=== PATIENT | male | born 1985 | race Two or more races ===

== ENCOUNTER 2021-03-31 21:35 | Inpatient (IN) | payer BC ==
[~2021-03-31] VITALS: Ht 182.9 cm; Wt 98.0 kg
--- NOTE | 2021-03-31 21:40 | NUR ---
pt BIB ambulance as a [facility] as a trasnfer for n/o full heart block per report, pt was recently in [place] and had some exposure to tics. when he came home, he had a n/o rash and went to where he was told that he was having a potential allergic reaction. pt reports no insect bites that he is aware of. pt as placed on PO steroids. pt noted that he started having dizziness with exertion and went to [facility] where he was found to be in heart block pt has been given 3mg atropine [employer] without improvement pt has no other hx. denies CP dizziness or SOB at this time. resting on gurney in position of comfort. pt is on monitor with cardiac pads. manual pulse is 19 no family at bedside. Dr Parra has been to bedside for eval
--- NOTE | 2021-03-31 21:50 | NUR ---
EKG has been to bedside. lab has been to bedside to draw pt resting in position of comfort. awaiting thermal molder to bedside
--- NOTE | 2021-03-31 21:51 | NUR ---
interventional cards paged
[2021-03-31 21:53] LABS: BASOPHILS % (AUTO) 1 % (0-1); EOSINOPHILS % (AUTO) 0 % (1-7); LYMPHOCYTES % (AUTO) 17 % (22-44); MEAN CORPUSCULAR HEMOGLOBIN 33.4 pg (27.5-34.5); MEAN PLATELET VOLUME 10.7 fL (7.4-10.4); MONOCYTES % (AUTO) 9 % (2-9); NEUTROPHILS % (AUTO) 73 % (42-75); PLATELET COUNT 226 x10^3/uL (130-400); RED BLOOD COUNT 3.94 x10^6/uL (4.38-5.82); RED CELL DISTRIBUTION WIDTH 13.9 % (9.4-14.8)
[2021-03-31 21:57] LABS: ALANINE AMINOTRANSFERASE 135 U/L (12-78); ALBUMIN 2.8 g/dL (3.4-5.0); ANION GAP 7 mmol/L (5-15); CHLORIDE 108 mmol/L (98-107); CREATININE 1.15 mg/dL (0.7-1.3)
[2021-03-31 22:07] LABS: ALKALINE PHOSPHATASE 150 U/L (45-117); BILIRUBIN,TOTAL 0.4 mg/dL (0.2-1.0); T4 (THYROXINE) 6.1 mcg/dL (4.5-12.1); TOTAL PROTEIN 7.8 g/dL (6.4-8.2); TROPONIN I < 0.015 ng/mL (0.000-0.045)
--- NOTE | 2021-03-31 22:18 | NUR ---
CXR has been to bedside COVID swab has been collected and sent pt to go to fence lab[facility] for pacemaker placement. tri color form initiated
[2021-03-31 22:24] LABS: INTERNATIONAL NORMALIZED RATIO 1.1 (0.93-1.1); PROTHROMBIN TIME 11.7 Seconds (9.6-11.5)
--- NOTE | 2021-03-31 22:24 | NUR ---
hospitalist at bedside for eval
[2021-03-31] MEDS ORDERED: SODIUM CHLORIDE FLUSH 10ML SYR IVF ONE (22:30)
[2021-03-31] MEDS ORDERED: SODIUM CHLORIDE 0.9% 1,000ML IVBOLUS ONE (22:30)
[2021-03-31] MEDS ORDERED: PLEASE ENTER ALLERGIES MC SCH (22:30)
--- NOTE | 2021-03-31 22:35 | NUR ---
pt to [facility] via [facility] monitoring [facility]. NS infusing
[2021-03-31] MEDS ORDERED: LIDOCAINE 2%, 20ML ONE (22:36)
[2021-03-31] MEDS ORDERED: FENTANYL PF 100 MCG/2ML ONE (22:36)
[2021-03-31] MEDS ORDERED: MIDAZOLAM 1 MG/ML, 2ML ONE (22:36)
[2021-03-31] MEDS ORDERED: OXYcodone/APAP 5/325MG TABLET PO PRN (23:30)
[2021-03-31 23:31] VITALS: BP 126/81
[2021-04-01] MEDS ORDERED: DIPHENHYDRAMINE 50 MG/ML, 1ML IVPush PRN (00:30)
[2021-04-01] MEDS: CEFTRIAXONE 2 GM in DEXTROSE 5% 50 ML IVPB SCH (08:29)
[2021-04-01] MEDS ORDERED: IBUPROFEN 600 MG TABLET PO PRN (09:00)
[2021-04-01] MEDS: ACETAMINOPHEN 325 MG TABLET PO PRN ×2 (10:35→22:40)
[2021-04-02] MEDS ORDERED: MELATONIN 5 MG TABLET ONE (00:19)
[2021-04-02] MEDS: MELATONIN 5 MG TABLET PO PRN ×2 (00:20→22:29)
[2021-04-02 03:57] LABS: ALBUMIN 2.6 g/dL (3.4-5.0); ANION GAP 5 mmol/L (5-15); CHLORIDE 106 mmol/L (98-107)
[2021-04-02 04:01] LABS: ALANINE AMINOTRANSFERASE 102 U/L (12-78); ALKALINE PHOSPHATASE 126 U/L (45-117); BILIRUBIN,TOTAL 0.4 mg/dL (0.2-1.0); CREATININE 0.82 mg/dL (0.7-1.3); TOTAL PROTEIN 7.5 g/dL (6.4-8.2)
[2021-04-02] MEDS: CEFTRIAXONE 2 GM in DEXTROSE 5% 50 ML IVPB SCH (07:28)
[2021-04-02] MEDS: ACETAMINOPHEN 325 MG TABLET PO PRN (22:29)
[2021-04-03 05:35] LABS: ALANINE AMINOTRANSFERASE 73 U/L (12-78); ALBUMIN 2.5 g/dL (3.4-5.0); ANION GAP 3 mmol/L (5-15); CALCIUM 8.9 mg/dL (8.5-10.1); CHLORIDE 108 mmol/L (98-107); CREATININE 0.88 mg/dL (0.7-1.3)
[2021-04-03 05:38] LABS: ALKALINE PHOSPHATASE 119 U/L (45-117); BILIRUBIN,TOTAL 0.3 mg/dL (0.2-1.0); TOTAL PROTEIN 7.3 g/dL (6.4-8.2)
[2021-04-03] MEDS: CEFTRIAXONE 2 GM in DEXTROSE 5% 50 ML IVPB SCH (07:38)
[2021-04-03] MEDS: ACETAMINOPHEN 325 MG TABLET PO PRN ×2 (16:10→22:17)
[2021-04-03] MEDS: MELATONIN 5 MG TABLET PO PRN (22:17)
[2021-04-04] MEDS: CEFTRIAXONE 2 GM in DEXTROSE 5% 50 ML IVPB SCH (07:10)
[2021-04-04] MEDS: ACETAMINOPHEN 325 MG TABLET PO PRN ×2 (15:35→21:39)
[2021-04-04] MEDS: MELATONIN 5 MG TABLET PO PRN (21:39)
[2021-04-05] MEDS: CEFTRIAXONE 2 GM in DEXTROSE 5% 50 ML IVPB SCH (07:51)
[2021-04-05] MEDS: ACETAMINOPHEN 325 MG TABLET PO PRN (22:22)
[2021-04-05] MEDS: MELATONIN 5 MG TABLET PO PRN (22:23)
[2021-04-06] MEDS ORDERED: VANCOMYCIN PMX 1GM/200ML 200 ML IVPB SCH (08:00)
[2021-04-06] MEDS: SODIUM CHLORIDE 0.9% 1,000 ML IV SCH ×2 (08:00→16:00)
[2021-04-06] MEDS: CEFTRIAXONE 2 GM in DEXTROSE 5% 50 ML IVPB SCH (08:01)
[2021-04-06] MEDS ORDERED: LIDOCAINE 2%, 20ML ONE (08:05)
[2021-04-06] MEDS ORDERED: CEFAZOLIN 1,000 MG ONE (08:05)
[2021-04-06] MEDS ORDERED: CEFAZOLIN PMX 1GM/50ML 0 ML ONE (08:05)
[2021-04-06] MEDS ORDERED: MIDAZOLAM 1 MG/ML, 5ML ONE ×2 (08:05→08:57)
[2021-04-06] MEDS ORDERED: FENTANYL PF 100 MCG/2ML ONE ×2 (08:05→08:56)
[2021-04-06] MEDS ORDERED: VANCOMYCIN 1,000 MG ONE (08:27)
[2021-04-06] MEDS ORDERED: HOLD MEDICATION MC PRN (11:00)
[2021-04-06 11:15] VITALS: BP 136/84
[2021-04-06 14:55] VITALS: BP 109/63
[2021-04-06] MEDS: SODIUM CHLORIDE FLUSH 10ML SYR IVF SCH (21:13)
[2021-04-06] MEDS: ACETAMINOPHEN 325 MG TABLET PO PRN (21:13)
[2021-04-06] MEDS: MELATONIN 5 MG TABLET PO PRN (21:13)
[2021-04-07 00:50] VITALS: BP 112/74
[2021-04-07 05:17] LABS: BASOPHILS % (AUTO) 1 % (0-1); EOSINOPHILS % (AUTO) 4 % (1-7); LYMPHOCYTES % (AUTO) 15 % (22-44); MEAN PLATELET VOLUME 9.9 fL (7.4-10.4); MONOCYTES % (AUTO) 10 % (2-9); NEUTROPHILS % (AUTO) 70 % (42-75); PLATELET COUNT 181 x10^3/uL (130-400); RED BLOOD COUNT 4.44 x10^6/uL (4.38-5.82); RED CELL DISTRIBUTION WIDTH 13.8 % (9.4-14.8)
[2021-04-07 05:27] LABS: ANION GAP 5 mmol/L (5-15); CALCIUM 9.4 mg/dL (8.5-10.1); CHLORIDE 103 mmol/L (98-107); CREATININE 0.83 mg/dL (0.7-1.3)
[2021-04-07 07:10] VITALS: BP 129/83
[2021-04-07] MEDS: CEFTRIAXONE 2 GM in DEXTROSE 5% 50 ML IVPB SCH (08:02)
[2021-04-07] MEDS: SODIUM CHLORIDE FLUSH 10ML SYR IVF SCH (09:57)
[2021-04-07] MEDS ORDERED: DOXY100T PO (12:21)
== END 2021-04-07 14:47 | disposition home or self-care (01) | DRG 243 ==
LOC: ED 22:05 → EDIP 22:14 → UNDOADMIN 22:43 → CCU 23:15 → 5SO 04-06 11:16
PROVIDERS: ADMIT Family Medicine; ATTEND Internal Medicine
PROC: 5A1223Z Performance of Cardiac Pacing, Continuous (ICD-10-PCS; 2021-03-31)
PROC: 0JH637Z Insertion of Cardiac Resynchronization Pacemaker Pulse Generator into Chest Subcutaneous Tissue and Fascia, Percutaneous Approach (ICD-10-PCS; principal; 2021-04-06)
PROC: 02HK3JZ Insertion of Pacemaker Lead into Right Ventricle, Percutaneous Approach (ICD-10-PCS; 2021-04-06)
PROC: 02HL3JZ Insertion of Pacemaker Lead into Left Ventricle, Percutaneous Approach (ICD-10-PCS; 2021-04-06)
PROC: 02H63JZ Insertion of Pacemaker Lead into Right Atrium, Percutaneous Approach (ICD-10-PCS; 2021-04-06)
DX: I44.2 Atrioventricular block, complete (principal); A69.20 Lyme disease, unspecified; A77.0 Spotted fever due to Rickettsia rickettsii; E87.1 Hypo-osmolality and hyponatremia; R00.1 Bradycardia, unspecified; Z20.822 Contact with and (suspected) exposure to COVID-19; E88.09 Other disorders of plasma-protein metabolism, not elsewhere classified; Z87.891 Personal history of nicotine dependence
CPT/HCPCS: 33208; 33210; 33225; 36415; 99285; J3490; 71045; 80048; 80053; 82164; 83735; 84436; 84443; 84484; 85025; 85610; 85730; 87081; 87147; 87476; 87635; 93005; 93306; 99156; 99157; C1769; C1779; C1887; C1892; C1894; C2621; G0378; J0690; J0696; J2250; J3010; J3370; C1730; C1900; J7030; Q9967